=== PATIENT | male | born 1990 | race Caucasian/White ===

== ENCOUNTER 2018-01-03 13:15 | Emergency (ER) | payer SELFPAY ==
[2018-01-03] MEDS: DIPHTH/TET/ACEL PERTUSS (ADULT) 0.5 ML VIAL IM* (15:16)
== END 2018-01-03 15:51 | disposition home or self-care (01) ==
LOC: FTE 13:15
DX: S71.111A Laceration without foreign body, right thigh, initial encounter (principal); W26.8XXA Contact with other sharp object(s), not elsewhere classified, initial encounter; Y92.89 Other specified places as the place of occurrence of the external cause; Z23 Encounter for immunization
CPT/HCPCS: 12001; 90471; 90715; 99283-25